=== PATIENT | female | born 1980 | race Caucasian/White ===

== ENCOUNTER → 2020-09-26 | Outpatient (CLI) | payer OTHER ==
--- NOTE | 2020-09-26 09:56 | USB ---
EXAMINATION TYPE: US breast workup limited PAULETTE DATE OF EXAM: 09/26/2020 COMPARISON: Mammogram same date CLINICAL HISTORY: R92.8 abnormal mammogram. Findings: The right breast was scanned with ultrasound from 8-12 o'clock and in the retroareolar region and axi lla. The left breast was scanned with ultrasound from 12- 3:00 and in the retroareolar region. There are scattered cysts bilaterally which accounts for the asymmetry is identified on mammogram. Th ere is no sonographic correlate for patient's bilateral nipple discharge. IMPRESSION: 1. No sonographic correlate for patient's bilateral nipple discharge. Clinical follow-up is recommend ed. MRI could be obtained if clinically warranted. 2. Bilateral screening mammogram is recommended in one year. BI-RADS 2, benign.
--- NOTE | 2020-09-26 11:17 | MM ---
Reason for exam: screening (asymptomatic). Baseline mammogram. History: Patient is nulliparous. Family history of breast cancer in paternal aunt at age 40. Took hormonal contraceptives for 6 years beginning at age 30. Physical Findings: Nurse did not find any significant physical abnormalities on exam. MG 3D Screening Mammo W/Cad Bilateral CC and MLO view(s) were taken. The breast tissue is heterogeneously dense. This may lower the sensitivity of mammography. There is a possibly 1.2cm asymmetry in the upper right breast at MLO view only and ultrasound is recommended 8cm from nipple. There is a 1.6cm mass in the upper outer middle left breast approximately 4.8cm from nipple and ultrasound is recommended. No correlate for bilateral nipple discharge and bilateral retroareolar ultrasound is recommended. These results were verbally communicated with the patient and result sheet given to the patient on 09/26/20. ASSESSMENT: Incomplete: need additional imaging evaluation, BI-RAD 0 RECOMMENDATION: Special view mammogram and ultrasound of both breasts.
--- NOTE | 2020-09-26 11:19 | MM ---
Reason for exam: additional evaluation requested from abnormal screening. History: Patient is nulliparous. Family history of breast cancer in paternal aunt at age 40. Took hormonal contraceptives for 6 years beginning at age 30. Physical Findings: Breast exam preformed at baseline screening. MG 3D Work Up W/Cad PAULETTE Bilateral CC with magnification and LM with magnification view(s) were taken. Spot compression MLO and XCCL view(s) were taken of the right breast. There is a possibly 1.2cm asymmetry in the upper right breast at MLO view only and ultrasound is recommended 8cm from nipple. There is a 1.6cm mass in the upper outer middle left breast approximately 4.8cm from nipple and ultrasound is recommended. No correlate for bilateral nipple discharge and bilateral retroareolar ultrasound is recommended. These results were verbally communicated with the patient and result sheet given to the patient on 09/26/20. ASSESSMENT: Incomplete: need additional imaging evaluation, BI-RAD 0 RECOMMENDATION: Ultrasound of both breasts.
== END | disposition home or self-care (01) ==
LOC: RADMAMWWP 07:01
PROVIDERS: ATTEND Family Medicine
DX: Z12.31 Encounter for screening mammogram for malignant neoplasm of breast (principal); Z80.3 Family history of malignant neoplasm of breast; Z79.3 Long term (current) use of hormonal contraceptives
CPT/HCPCS: 77062; 77063; 77066; 77067

== ENCOUNTER → 2022-08-01 | Outpatient (CLI) | payer OTHER ==
--- NOTE | 2022-08-04 08:14 | MM ---
Reason for Exam: Screening (asymptomatic). Last mammogram was performed 1 year(s) and 10 month(s) ago. Patient History: Menarche at age 12. Patient has no children. Hormonal Contraceptives for 6 years from age 30 until age 36. Paternal aunt had breast cancer, age 40. Risk Values: Gale 5 year model risk: 0.8%. NCI Lifetime model risk: 9.8%. Prior Study Comparison: 09/26/2020 Bilateral Screening Mammogram, [facility]. 09/26/2020 Bilateral Diagnostic Mammogram, [facility]. Tissue Density: The breast tissue is extremely dense which could obscure a lesion on mammography. Findings: Analyzed By CAD. There is no suspicious group of microcalcifications or new suspicious mass in either breast. Overall Assessment: Benign, BI-RAD 2 Management: Screening Mammogram of both breasts in 1 year. . Patient should continue monthly self-breast exams. A clinical breast exam by your physician is recommended on an annual basis. This exam should not preclude additional follow-up of suspicious palpable abnormalities. Note on Gale scores and lifetime risk: 1. A Gale score greater than 3% is considered moderate risk. If this is the case, consider specialist referral to assess eligibility for a risk reducing agent. 2. If overall lifetime risk for the development of breast cancer is 20% or higher, the patient may qualify for future screening with alternating mammogram and breast MRI. Electronically signed and approved by: Jefferson Portillo M.D. Radiologis
== END | disposition home or self-care (01) ==
LOC: RADMAMWWP 10:37
PROVIDERS: ATTEND Family Medicine
DX: Z12.31 Encounter for screening mammogram for malignant neoplasm of breast (principal); Z80.3 Family history of malignant neoplasm of breast
CPT/HCPCS: 77063; 77067

== ENCOUNTER → 2024-07-29 | Outpatient (CLI) | payer OTHER ==
--- NOTE | 2024-07-29 11:55 | MM ---
Reason for Exam: Screening (asymptomatic). Last mammogram was performed 2 year(s) and 0 month(s) ago. Patient History: Menarche at age 12. Patient has no children. Hormonal Contraceptives for 6 years from age 30 until age 36. Paternal aunt had breast cancer, age 40. Last menstrual period: 07/15/2024 Risk Values: Gale 5 year model risk: 0.9%. NCI Lifetime model risk: 9.6%. Prior Study Comparison: 09/26/2020 Bilateral Screening Mammogram, [facility]. 09/26/2020 Bilateral Diagnostic Mammogram, [facility]. 08/01/2022 Bilateral MG 3D screening mammo w/cad, [facility]. Tissue Density: The breasts are heterogeneously dense, which may obscure small masses. Findings: Analyzed By CAD. Benign-appearing scattered and grouped tiny round calcifications in the left breast are redemonstrated. There is no suspicious new group of microcalcifications or new suspicious mass in either breast. Overall Assessment: Benign, BI-RAD 2 Management: Screening Mammogram of both breasts in 1 year. Some Advise annual bilateral breast ultrasound surveillance in patients with background dense tissue. Patient should continue monthly self-breast exams. A clinical breast exam by your physician is recommended on an annual basis. This exam should not preclude additional follow-up of suspicious palpable abnormalities. Note on Gale scores and lifetime risk: 1. A Gale score greater than 3% is considered moderate risk. If this is the case, consider specialist referral to assess eligibility for a risk reducing agent. 2. If overall lifetime risk for the development of breast cancer is 20% or higher, the patient may qualify for future screening with alternating mammogram and breast MRI. [facility], , 07/29/2024 11:52 AM. Electronically signed and approved by: Óscar Das M.D.
== END | disposition home or self-care (01) ==
LOC: RADMAMWWP 11:06
PROVIDERS: ATTEND Family Medicine
DX: Z12.31 Encounter for screening mammogram for malignant neoplasm of breast (principal); R92.333 Mammographic heterogeneous density, bilateral breasts; R92.1 Mammographic calcification found on diagnostic imaging of breast; Z80.3 Family history of malignant neoplasm of breast; Z92.0 Personal history of contraception
CPT/HCPCS: 77063; 77067